=== PATIENT | female | born 1955 | race Caucasian/White ===

== ENCOUNTER 2017-04-15 13:57 | Outpatient (CLI) | payer OTHER ==
[2017-04-15] MEDS ORDERED: GADOBUTROL 7.5 MMOL/7.5 ML VIAL ONE (14:22)
[2017-04-15] MEDS ORDERED: GADOBUTROL 7.5 MMOL/7.5 ML VIAL IVP ONE (15:02)
--- NOTE | 2017-04-15 16:09 | MRI Report ---
EXAM: MRI BRAIN WITHOUT AND WITH CONTRAST EXAM DATE: 04/15/2017 03:15 PM. CLINICAL HISTORY: Thunderclap headaches. COMPARISON: No previous MRI. TECHNIQUE: Multiplanar, multisequence T1-weighted and fluid-sensitive MR sequences of the brain were performed. Sequences optimized for routine evaluation. Other: None. IV Contrast: 7 mL Gadavist. FINDINGS: Brain Volume: Normal for age. Parenchyma: No acute hemorrhage, mass, or infarct. No white matter lesions identified. No abnormal en hancement. Ventricles/Cisterns: No hydrocephalus. No abnormal extra-axial fluid collection or hemorrhage. Orbits: Symmetric and unremarkable. IAC: Symmetric and unremarkable. Vasculature: Normal signal flow void is seen in the major arterial structures at the skull base. The dural sinuses are patent and enhance normally. Sinuses: Mild to moderate multifocal paranasal sinus mucosal thickening, especially ethmoid bilateral ly. Bones: No focal pathologic appearing marrow signal changes. Other: None. IMPRESSION: 1.No acute intracranial abnormality or enhancing mass, unremarkable MRI appearance of the brain. 2. Paranasal sinus mucosal thickening. [facility] Referring Provider Line: [phone] SITE ID: [id number]
== END 2017-04-15 13:58 | disposition home or self-care (01) ==
LOC: DI 13:57
PROVIDERS: ATTEND Internal Medicine
DX: G44.53 Primary thunderclap headache (principal)
CPT/HCPCS: 70553; A9585

== ENCOUNTER 2017-04-25 13:55 | Outpatient (CLI) | payer OTHER ==
--- NOTE | 2017-04-25 15:16 | MRI Preliminary Report ---
Exam: MRI ANGIO BRAIN W/O (MRA) IMPRESSION: 1.Normal brain MRA. No stenoses or aneurysms. 2. The right vertebral artery is dominant forming the basilar artery. The left vertebral artery prima rily terminates as the left PICA. [facility] SITE ID: [id number]
--- NOTE | 2017-04-25 15:18 | MRI Report ---
EXAM MRA BRAIN EXAM DATE: 04/25/2017 02:30 PM. CLINICAL HISTORY: THUNDERCLAP HEADACHE, PRIMARY. COMPARISON: MRI of the brain 04/15/2017. TECHNIQUE: Multiplanar, multisequence MRA sequences of the brain were performed. Other: None. Post-pr ocessing: Multiplanar 3D MIP reconstructions. IV Contrast: None. FINDINGS: RIGHT Internal Carotid (ICA): No aneurysm, stenosis or anomaly. Middle Cerebral (MCA): No aneurysm, stenosis or anomaly. Anterior Cerebral (ETHEL): No aneurysm, stenosis or anomaly. Posterior Cerebral (EDGE MOLDER): No aneurysm, stenosis or anomaly. Posterior Communicating (P-COM): No aneurysm, stenosis or anomaly. Vertebral: No aneurysm, stenosis or anomaly in the visualized upper vertebral artery. Dominant formin g the basilar artery. The PICA is unremarkable. LEFT Internal Carotid (ICA): No aneurysm, stenosis or anomaly. Middle Cerebral (MCA): No aneurysm, stenosis or anomaly. Anterior Cerebral (ETHEL): No aneurysm, stenosis or anomaly. Posterior Cerebral (EDGE MOLDER): No aneurysm, stenosis or anomaly. Posterior Communicating (P-COM): No aneurysm, stenosis or anomaly. Vertebral: No aneurysm, stenosis or anomaly in the visualized upper vertebral artery. Small in calibe r, terminates as the left PICA. No significant continuation to the basilar artery is seen. MIDLINE Anterior Communicating (A-COM): No aneurysm, stenosis or anomaly. Basilar Artery:No aneurysm, stenosis or anomaly. Other: None. IMPRESSION: 1.Normal brain MRA. No stenoses or aneurysms. 2. The right vertebral artery is dominant forming the basilar artery. The left vertebral artery prima rily terminates as the left PICA. [facility] Referring Provider Line: [phone] SITE ID: [id number]
--- NOTE | 2017-04-28 14:54 | DEXA Report ---
DEXA SCAN: 04/25/2017 HISTORY: Primary ovarian failure. TECHNIQUE: Dual energy x-ray absorptiometry (DXA) was performed on a [employer] system. Regions measured are the AP spine, femoral neck, and, if needed, forearm. COMPARISON: None. In accordance with the International Society for Clinical Densitometry (ISCD) guidelines, data from previous exams may be reanalyzed using current recommendations and techniques. This is done to allow a more accurate basis for comparison with the current study. FINDINGS LUMBAR SPINE DATA: REGION BMD (g/cm/cm) T-SCORE Z-SCORE L1 0.945 -1.5 -0.5 L2 1.073 -1.1 0.0 L3 1.156 -0.4 0.7 L4 1.144 -0.5 0.6 TOTAL 1.085 -0.8 0.3 NOTE: All evaluable vertebrae are used for classification. HIP DATA: REGION BMD (g/cm/cm) T-SCORE Z-SCORE Neck 0.943 -0.7 0.5 TOTAL 0.890 -0.9 -0.1 NOTE: The femoral neck or total proximal femur, whichever is lowest, is used for classification. IMPRESSION THE WHO CLASSIFICATION BASED ON THE INTERNATIONAL REFERENCE STANDARD: BONE MINERAL DENSITY L1 TO L4 AND BONE MINERAL DENSITY LEFT HIP ARE NORMAL. FRACTURE RISK: NOT INCREASED. RECOMMENDATION: Patients with diagnosis of osteoporosis or osteopenia should have regular bone mineral density assessment. For those eligible for Medicare, routine testing is allowed once every 2 years. Testing frequency can be increased for patients who have rapidly progressing disease or for those who are receiving medical therapy to restore bone mass. COMMENT: World Health Organization (WHO) definitions for osteoporosis and osteopenia: NORMAL BMD: T-score at -1.0 or higher, fracture risk is low. OSTEOPENIA BMD: T-score between -1.0 and -2.5, fracture risk is increased. OSTEOPOROSIS BMD: T-score at -2.5 or lower, fracture risk high. National Osteoporosis Foundation recommends: 1. Obtain adequate dietary calcium (at least 1200 mg per day) and vitamin D (400 -800 international units per day). 2. Participate, as appropriate, in regular weightbearing and muscle- strengthening exercise. 3. Avoid tobacco use and reduce alcohol and caffeine intake. 4. For more detailed information see the website at www.NOF.org. MTDD
== END 2017-04-25 13:56 | disposition home or self-care (01) ==
LOC: DI 13:55
PROVIDERS: ATTEND Internal Medicine
DX: G44.53 Primary thunderclap headache (principal); Z78.0 Asymptomatic menopausal state
CPT/HCPCS: 70544; 77080

== ENCOUNTER 2017-04-26 14:33 | Outpatient (CLI) | payer OTHER ==
--- NOTE | 2017-04-27 09:30 | Mammography Report ---
DIGITAL SCREENING MAMMOGRAM: 04/26/2017 COMPARISON: 05/12/2016, 05/21/2015, 04/19/2014, 04/05/2014, 05/08/2013, 05/02/2012, 04/23/2011, and 05/04/2010. TECHNIQUE: Bilateral digital CC and MLO projections. FINDINGS: There are scattered fibroglandular densities. There is no dominant mass, architectural di stortion, skin thickening, suspicious microcalcifications, or interval change. IMPRESSION: NEGATIVE. BIRADS CATEGORY 1. SUGGEST ROUTINE ANNUAL SCREENING. STANDARD QUALIFYING STATEMENTS 1. This examination was reviewed with the aid of Computer-Aided Detection (CAD). 2. A negative or benign imaging report should not delay biopsy if clinically suspicious findings are present. Consider surgical consultation if warranted. More than 5% of cancers are not identified by i maging. 3. Dense breasts may obscure an underlying neoplasm. JOB #: [id number] EXT JOB #:[id number]
== END 2017-04-26 14:34 | disposition home or self-care (01) ==
LOC: DI 14:33
PROVIDERS: ATTEND Obstetrics & Gynecology
DX: Z12.39 Encounter for other screening for malignant neoplasm of breast (principal)
CPT/HCPCS: 77067

== ENCOUNTER 2018-04-10 07:36 | Outpatient (CLI) | payer OTHER ==
[2018-04-10 07:53] LABS: BASOPHILS % (AUTO) 0.4 %; EOSINOPHILS # (AUTO) 0.1 10^3/uL (0.0-0.7); EOSINOPHILS % (AUTO) 2.1 %; HGB - HEMOGLOBIN 13.6 g/dL (12.0-16.0); LYMPHOCYTES # (AUTO) 1.4 10^3/uL (1.5-3.5); LYMPHOCYTES % (AUTO) 23.2 %; MEAN CORPUSCULAR HEMOGLOBIN 31.4 pg (27.0-31.0); MEAN CORPUSCULAR HGB CONC 34.2 g/dL (32.0-36.0); MONOCYTES # (AUTO) 0.4 10^3/uL (0.0-1.0); MONOCYTES % (AUTO) 6.8 %; NEUTROPHILS # (AUTO) 3.9 10^3/uL (1.5-6.6); NEUTROPHILS % (AUTO) 67.5 %; PLT - PLATELET COUNT 234 10^3/uL (130-450); RED BLOOD COUNT 4.32 10^6/uL (4.20-5.40); RED CELL DISTRIBUTION WIDTH 13.2 % (12.0-15.0); WHITE BLOOD COUNT 5.8 x10^3/uL (4.8-10.8)
[2018-04-10 08:13] LABS: ALBUMIN 4.3 g/dL (3.2-5.5); ALBUMIN/GLOBULIN RATIO 1.5 (1.0-2.2); ALKALINE PHOSPHATASE 57 IU/L (42-121); ALT ALANINE AMINOTRANSFERASE 16 IU/L (10-60); AST ASPARTATE AMINOTRANSFERASE 22 IU/L (10-42); BILIRUBIN,TOTAL 1.3 mg/dL (0.2-1.0); BUN - BLOOD UREA NITROGEN 17 mg/dL (6-20); CALCIUM 9.1 mg/dL (8.5-10.3); CARBON DIOXIDE - CO2 28 mmol/L (21-32); CHLORIDE 102 mmol/L (101-111); CHOL/HDL RATIO 2.3 (<4.4); CHOLESTEROL 237 mg/dL; CREATININE 0.8 mg/dL (0.4-1.0); GFR - MDRD 73 (>89); GLUCOSE 102 mg/dL (70-100); HDL CHOLESTEROL 101 mg/dL; LDL CHOLESTEROL,CALCULATED 122 mg/dL; LDL/HDL RATIO 1.2 (<4.4); SODIUM 136 mmol/L (135-145); TOTAL PROTEIN 7.2 g/dL (6.7-8.2); VLDL CHOLESTEROL 14 mg/dL
[2018-04-10 08:32] LABS: HB2 TOTAL 14.7 g/dL; HEMOGLOBIN A1C 0.49 g/dL; HEMOGLOBIN A1C % 5.2 % (4.6-6.2)
== END 2018-04-10 07:37 | disposition home or self-care (01) ==
LOC: LAB 07:36
PROVIDERS: ATTEND Internal Medicine
DX: Z00.00 Encounter for general adult medical examination without abnormal findings (principal); E04.1 Nontoxic single thyroid nodule; R73.9 Hyperglycemia, unspecified; Z79.899 Other long term (current) drug therapy
CPT/HCPCS: 36415; 80053; 80061; 83036; 83721; 84443; 85025

== ENCOUNTER 2018-05-04 16:39 | Outpatient (CLI) | payer OTHER ==
--- NOTE | 2018-05-05 13:49 | Ultrasound Report ---
Reason: THYROID NODULE Procedure Date: 05/04/2018 Accession Number: [id number] / [id number] Procedure: US - Head or Neck Soft Tissue CPT Code: FULL RESULT: EXAM: THYROID ULTRASOUND EXAM DATE: 05/04/2018 05:00 PM. CLINICAL HISTORY: Thyroid nodule. COMPARISON: US head or neck soft tissue 05/14/2016 11:53 AM. TECHNIQUE: Real time sonographic imaging of the thyroid was performed by the silica mixer operator. Multiple event marketing representative static images were saved for review. FINDINGS: THYROID GLAND: Right Lobe: 4.8 x 1.6 x 1.7 cm, volume 6.9 cc. Homogenous normal-appearing thyroid background. Right Lobe Nodules: Upper pole 1.1 x 0.7 x 1.1 cm solid hypoechoic nodule, similar to prior. Heterogeneous 0.6 x 0.5 x 0.6 cm inferior nodule, similar to prior. Left Lobe: 4.9 x 1.4 x 1.6 cm, volume 6 cc. Normal-appearing thyroid background. Left Lobe Nodules: Heterogeneous cystic solid 1.2 x 0.6 x 0.9 cm nodule, minimally increased compared to prior. Tiny cystic nodules measuring 5 mm or less are also seen. Isthmus: 0.3 cm AP. Isthmic Nodules: None. LYMPH NODES: No adenopathy demonstrated in the central or lateral compartment. OTHER: None. IMPRESSION: Multiple thyroid nodules in the setting of a normal thyroid parenchymal background. Appearance does not favor multinodular goiter. The largest nodule on each side may have mildly increased in size in the interval. Would perform fine-needle aspiration of the dominant nodule on each side given that they now measure greater than 1 cm and both demonstrate significant solid components. Management recommendations are based on 2015 [place] [employer] Management Guidelines for Adult Patients with Thyroid Nodules and Differentiated Thyroid Cancer. [facility]
== END 2018-05-04 16:40 | disposition home or self-care (01) ==
LOC: DI 16:39
PROVIDERS: ATTEND Internal Medicine
DX: E04.2 Nontoxic multinodular goiter (principal)
CPT/HCPCS: 76536

== ENCOUNTER 2018-05-22 14:21 | Outpatient (CLI) | payer OTHER ==
--- NOTE | 2018-05-24 08:13 | Mammography Report ---
Reason: SCREENING MAMMO Procedure Date: 05/22/2018 Accession Number: [id number] / [id number] Procedure: [facility] - Screening Mammo Dig Bilat CPT Code: FULL RESULT: EXAM: Screening Mammo Dig Bilat DATE: 05/22/2018 2:54 PM CLINICAL HISTORY: Screening encounter. History of breast cyst removal. No reported risk factors. TECHNIQUE: Bilateral CC and MLO views were obtained. COMPARISON: 04/26/2017 through 04/05/2014. FINDINGS: The breasts demonstrate scattered fibroglandular densities bilaterally. No suspicious masses, clustered microcalcifications, or regions of architectural distortion are identified. IMPRESSION: Negative examination RECOMMENDATION: Routine annual screening unless otherwise clinically indicated. BIRADS CATEGORY 1: Negative STANDARD QUALIFYING STATEMENTS: 1. This examination was not reviewed with the aid of Computer-Aided Detection (CAD). 2. A negative or benign imaging report should not preclude biopsy if clinically suspicious findings are present. 3. Dense breasts may obscure an underlying neoplasm. 4. This examination was reviewed without the aid of 3D breast imaging (tomosynthesis).
== END 2018-05-22 14:22 | disposition home or self-care (01) ==
LOC: DI 14:21
PROVIDERS: ATTEND Obstetrics & Gynecology
DX: Z12.13 Encounter for screening for malignant neoplasm of small intestine (principal)
CPT/HCPCS: 77067

== ENCOUNTER 2018-06-16 13:33 | Outpatient (CLI) | payer BC, OTHER ==
[~2018-06-16 13:33] MED LIST: BUFFERED LIDOCAINE 10 ML SYRINGE ONE
--- NOTE | 2018-06-16 16:05 | Ultrasound Report ---
Reason: THYROID NODULE Procedure Date: 06/16/2018 Accession Number: [id number] / [id number] Procedure: US - FNA Bx w/US Gnd les CPT Code: 87226 FULL RESULT: EXAM: THYROID FINE NEEDLE ASPIRATION EXAM DATE: 06/16/2018 03:00 PM. CLINICAL HISTORY: Thyroid nodule. COMPARISON: 05/04/2018. TECHNIQUE: The risks, benefits, and alternatives of the procedure were discussed with the patient. All questions were answered. Written and verbal consent were obtained. A site was marked over the right and left neck in question under live sonographic evaluation, then subsequently prepped and draped in a sterile manner. Local anesthesia was performed with 1% lidocaine. Four, 22 gauge fine-needle aspirates/passes were performed through the dominant right and left thyroid nodule in question, then passed to the certified addiction counselor for preparation. Estimated blood loss was 0 mL. Sonographic images demonstrate needle placement within the right and left thyroid nodule in question. Three FNA aspirates were placed into the normal cytology solution for each nodule. One FNA aspirate of each nodule was placed into specialized thyroid genetic assay solution. Fluoroscopy Time: 0 minutes. Number of Images: 24 ultrasound images. FINDINGS IMPRESSION: Fine-needle aspiration biopsy of the dominant left and dominant right thyroid nodule respectively. [facility]
[2018-06-16] MEDS ORDERED: BUFFERED LIDOCAINE 10 ML SYRINGE IU ONE (17:45)
== END 2018-06-16 13:34 | disposition home or self-care (01) ==
LOC: DI 13:33
PROVIDERS: ATTEND Internal Medicine
DX: E04.2 Nontoxic multinodular goiter (principal)
CPT/HCPCS: 10005

== ENCOUNTER 2018-08-29 16:35 | Outpatient (CLI) | payer BC, OTHER ==
[2018-08-29 18:20] LABS: THYROID STIMULATING HORMONE 2.27 uIU/mL (0.34-5.60)
[2018-08-29 18:22] LABS: FREE T4 (FREE THYROXINE) 0.75 ng/dL (0.58-1.64)
== END 2018-08-29 16:36 | disposition home or self-care (01) ==
LOC: LAB 16:35
PROVIDERS: ATTEND Internal Medicine
DX: E04.1 Nontoxic single thyroid nodule (principal)
CPT/HCPCS: 36415; 84439; 84443; 84481

== ENCOUNTER 2019-03-10 10:07 | Outpatient (CLI) | payer OTHER, BC ==
--- NOTE | 2019-03-11 17:05 | MRI Report ---
Reason: PATELLOFEMORAL DISORDER OF RIGHT KNEE Procedure Date: 03/10/2019 Accession Number: [id number] / [id number] Procedure: MRI - Knee RT W/O CPT Code: FULL RESULT: EXAM: RIGHT KNEE MRI WITHOUT CONTRAST EXAM DATE: 03/10/2019 11:17 AM. CLINICAL HISTORY: Patellofemoral disorder of right knee. COMPARISON: None. TECHNIQUE: Multiplanar, multisequence T1-weighted and fluid-sensitive sequences of the knee without contrast. Other: None. FINDINGS: Bones: There are no visible fractures. Articular Cartilage: Minimal erosion of the hyaline cartilage in all 3 compartments. Medial Meniscus: There is a complex tear at the junction of the posterior horn and body of the medial meniscus. It appears to propagate into the posterior horn as a vertical tear. A fragment from the free margin of the body is displaced into the medial recess, superior and medial to the body of the meniscus. Lateral Meniscus: The lateral meniscus is intact. Cruciate Ligaments: The anterior and posterior cruciate ligaments are intact. Collateral Ligaments: The medial collateral and lateral collateral ligamentous structures are intact. Tendons: The quadriceps, patellar, semimembranosus, and popliteus tendons are unremarkable. Musculature: No edema or fatty atrophy. Other: There is a small joint effusion.. No popliteal cyst.No loose bodies.The medial and lateral retinacula are intact.The subcutaneous tissues and fat pads are unremarkable. IMPRESSION: 1. 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 2. Complex tear of the body and posterior horn of the medial meniscus. A fragment is displaced into the medial recess, lying superior to the body of the medial meniscus. [facility]
== END 2019-03-10 10:08 | disposition home or self-care (01) ==
LOC: DI 10:07
PROVIDERS: ATTEND Orthopaedic Surgery Sports Medicine
DX: M17.11 Unilateral primary osteoarthritis, right knee (principal); M23.221 Derangement of posterior horn of medial meniscus due to old tear or injury, right knee

== ENCOUNTER 2019-04-04 06:08 | Outpatient (CLI) | payer BC, OTHER ==
[2019-04-04 06:28] LABS: BASOPHILS % (AUTO) 0.2 %; EOSINOPHILS # (AUTO) 0.2 10^3/uL (0.0-0.7); EOSINOPHILS % (AUTO) 2.8 %; HGB - HEMOGLOBIN 13.8 g/dL (12.0-16.0); LYMPHOCYTES # (AUTO) 1.4 10^3/uL (1.5-3.5); LYMPHOCYTES % (AUTO) 23.7 %; MEAN CORPUSCULAR HEMOGLOBIN 31.3 pg (27.0-31.0); MEAN CORPUSCULAR HGB CONC 33.4 g/dL (32.0-36.0); MEAN CORPUSCULAR VOLUME 93.7 fL (81.0-99.0); MEAN PLATELET VOLUME 10.2 fL (7.9-10.8); MONOCYTES # (AUTO) 0.5 10^3/uL (0.0-1.0); MONOCYTES % (AUTO) 7.8 %; NEUTROPHILS # (AUTO) 3.8 10^3/uL (1.5-6.6); PLT - PLATELET COUNT 242 10^3/uL (130-450); RED BLOOD COUNT 4.41 10^6/uL (4.20-5.40); RED CELL DISTRIBUTION WIDTH 12.6 % (12.0-15.0); WHITE BLOOD COUNT 5.8 x10^3/uL (4.8-10.8)
[2019-04-04 06:48] LABS: ALBUMIN/GLOBULIN RATIO 1.2 (1.0-2.2); ALKALINE PHOSPHATASE 48 IU/L (42-121); ALT ALANINE AMINOTRANSFERASE 19 IU/L (10-60); AST ASPARTATE AMINOTRANSFERASE 25 IU/L (10-42); BILIRUBIN,TOTAL 1.2 mg/dL (0.2-1.0); BUN - BLOOD UREA NITROGEN 22 mg/dL (6-20); CALCIUM 9.3 mg/dL (8.5-10.3); CARBON DIOXIDE - CO2 24 mmol/L (21-32); CHLORIDE 104 mmol/L (101-111); CHOL/HDL RATIO 2.4 (<4.4); CHOLESTEROL 237 mg/dL; CREATININE 0.7 mg/dL (0.4-1.0); GFR - MDRD 85 (>89); GLUCOSE 107 mg/dL (70-100); HDL CHOLESTEROL 100 mg/dL; LDL CHOLESTEROL,CALCULATED 126 mg/dL; LDL/HDL RATIO 1.3 (<4.4); SODIUM 136 mmol/L (135-145); TOTAL PROTEIN 7.3 g/dL (6.7-8.2); VLDL CHOLESTEROL 11 mg/dL
[2019-04-04 06:58] LABS: THYROID STIMULATING HORMONE 2.53 uIU/mL (0.34-5.60)
[2019-04-04 07:00] LABS: FREE T4 (FREE THYROXINE) 0.97 ng/dL (0.58-1.64)
[2019-04-04 09:26] LABS: HB2 TOTAL 14.1 g/dL; HEMOGLOBIN A1C 0.52 g/dL; HEMOGLOBIN A1C % 5.5 % (4.6-6.2)
== END 2019-04-04 06:09 | disposition home or self-care (01) ==
LOC: LAB 06:08
PROVIDERS: ATTEND Nurse Practitioner
DX: Z79.899 Other long term (current) drug therapy (principal); E04.1 Nontoxic single thyroid nodule; R73.02 Impaired glucose tolerance (oral)
CPT/HCPCS: 36415; 80053; 80061; 83036; 83721; 84439; 84443; 84481; 85025

== ENCOUNTER 2020-05-09 07:36 | Outpatient (CLI) | payer BC, OTHER ==
[2020-05-09 08:04] LABS: BASOPHILS % (AUTO) 0.3 %; EOSINOPHILS # (AUTO) 0.2 10^3/uL (0.0-0.7); EOSINOPHILS % (AUTO) 2.6 %; LYMPHOCYTES # (AUTO) 1.2 10^3/uL (1.5-3.5); LYMPHOCYTES % (AUTO) 20.1 %; MEAN CORPUSCULAR HEMOGLOBIN 30.5 pg (27.0-31.0); MEAN CORPUSCULAR HGB CONC 32.6 g/dL (32.0-36.0); MEAN CORPUSCULAR VOLUME 93.7 fL (81.0-99.0); MONOCYTES # (AUTO) 0.4 10^3/uL (0.0-1.0); MONOCYTES % (AUTO) 6.7 %; NEUTROPHILS # (AUTO) 4.2 10^3/uL (1.5-6.6); NEUTROPHILS % (AUTO) 69.8 %; PLT - PLATELET COUNT 259 10^3/uL (130-450); RED BLOOD COUNT 4.26 10^6/uL (4.20-5.40); RED CELL DISTRIBUTION WIDTH 12.2 % (12.0-15.0); WHITE BLOOD COUNT 6.1 x10^3/uL (4.8-10.8)
[2020-05-09 08:30] LABS: ALBUMIN 4.2 g/dL (3.2-5.5); ALBUMIN/GLOBULIN RATIO 1.4 (1.0-2.2); ALKALINE PHOSPHATASE 56 IU/L (42-121); ALT ALANINE AMINOTRANSFERASE 16 IU/L (10-60); AST ASPARTATE AMINOTRANSFERASE 20 IU/L (10-42); BILIRUBIN,TOTAL 0.9 mg/dL (0.2-1.0); BUN - BLOOD UREA NITROGEN 20 mg/dL (6-20); CALCIUM 9.5 mg/dL (8.5-10.3); CARBON DIOXIDE - CO2 22 mmol/L (21-32); CHLORIDE 105 mmol/L (101-111); CHOL/HDL RATIO 2.4 (<4.4); CHOLESTEROL 229 mg/dL; CREATININE 0.7 mg/dL (0.4-1.0); GLUCOSE 107 mg/dL (70-100); HDL CHOLESTEROL 95 mg/dL; LDL CHOLESTEROL,CALCULATED 122 mg/dL; LDL/HDL RATIO 1.3 (<4.4); SODIUM 138 mmol/L (135-145); TOTAL PROTEIN 7.1 g/dL (6.7-8.2); VLDL CHOLESTEROL 12 mg/dL
[2020-05-09 08:43] LABS: THYROID STIMULATING HORMONE 2.14 uIU/mL (0.34-5.60)
[2020-05-09 08:44] LABS: FREE T3 2.96 pg/mL (2.5-3.9)
[2020-05-09 08:45] LABS: FREE T4 (FREE THYROXINE) 0.97 ng/dL (0.58-1.64)
[2020-05-09 13:25] LABS: HEMOGLOBIN A1c% 5.2 % (4.27-6.07)
== END 2020-05-09 07:37 | disposition home or self-care (01) ==
LOC: LAB 07:36
PROVIDERS: ATTEND Nurse Practitioner
DX: Z00.00 Encounter for general adult medical examination without abnormal findings (principal); R73.02 Impaired glucose tolerance (oral); E04.1 Nontoxic single thyroid nodule; Z79.899 Other long term (current) drug therapy
CPT/HCPCS: 36415; 80053; 80061; 83036; 83721; 84439; 84443; 84481; 85025

== ENCOUNTER 2020-05-17 16:19 | Outpatient (CLI) | payer BC, OTHER ==
--- NOTE | 2020-05-17 19:45 | Ultrasound Report ---
PROCEDURE: Head or Neck Soft Tissue INDICATIONS: THYROID NODULE TECHNIQUE: Real-time scanning was performed of the thyroid gland, with image documentation. COMPARISON: 05/05/2018 FINDINGS: Right: Thyroid lobe measures 3.7 x 1.5 x 1.9 cm, and is homogeneous in echotexture. Left: Thyroid lobe measures 5.2 x 2.0 x 1.4 cm, and is homogenous in echotexture. Isthmus: 5 mm thick. Nodule number: One Location: Right upper pole Size: 1.0 x 0.7 x 0.8 cm, previously 1.1 x 0.7 x 1.1 cm. Composition: Solid Echogenicity: Hypoechoic Shape: wider than tall. Margins: Smooth Echogenic foci: No Total points: 4 ACR TI-RADS category: Moderately suspicious, previously biopsied. Nodule number: Two Location: Right deep lateral midpole Size: 0.6 x 0.5 x 0.5 cm. Not previously measured as a discrete nodule by the [employer] but stable by my measurements on there picture. Composition: Solid Echogenicity: Hypoechoic Shape: wider than tall. Margins: Smooth Echogenic foci: Punctate Total points: 7 ACR TI-RADS category: Highly suspicious, but stable size over 2 years. Nodule number: Three Location: Right inferior pole Size: 0.5 x 0.5 x 0.4 cm., Previously 0.6 x 0.5 x 0.6 Composition: Solid Echogenicity: Hyperechoic Shape: wider than tall. Margins: Smooth Echogenic foci: None Total points: 3 ACR TI-RADS category: Mildly suspicious, stable Nodule number: Four Location: Left mid pole Size: 1.1 x 0.6 x 0.8 cm, previously 1.2 x 0.6 x 0.9 cm. Composition: Solid Echogenicity: Hypoechoic Shape: wider than tall. Margins: Irregular Echogenic foci: Punctate Total points: 8 ACR TI-RADS category: Highly suspicious, but previously biopsied Nodule number: 5 Location: Left medial midpole Size: 0.5 x 0.2 x 0.4 cm, previously 0.5 x 0.4 x 0.3 cm. Composition: 2 small to characterize Echogenicity: Hypoechoic Shape: wider than tall. Margins: Smooth Echogenic foci: None Total points: 3 ACR TI-RADS category: Mildly suspicious, stable IMPRESSION: 1. No significant change in size to any of the multiple thyroid nodules, which by established criteri a are of various concern. The most concerning appear to have been recently biopsied. Continued follow -up for subcentimeter right lobe nodule given criteria. Given its recent stability, two-year follow-u p is recommended. ACR TI-RADS definitions and recommendations: TI-RADS 1 (benign): 0 points. FNA not needed. TI-RADS 2 (not suspicious): 2 points. FNA not needed. TI-RADS 3 (mildly suspicious): 3 points. ? FNA if 2.5 cm or larger, follow up if 1.5 cm or larger (at 1, 3, and 5 years). TI-RADS 4 (moderately suspicious): 4-6 points. ? FNA if 1.5 cm or larger, follow up if 1 cm or larger (at 1, 2, 3, and 5 years). TI-RADS 5 (highly suspicious): 7 points or more. ? FNA if 1 cm or larger, follow up if 0.5 cm or larger (every year for 5 years). Reviewed by: Aliyah Rosado MD on 05/17/2020 7:43 PM PST Approved by: Aliyah Rosado MD on 05/17/2020 7:43 PM PST Station ID: [id number]
== END 2020-05-17 16:20 | disposition home or self-care (01) ==
LOC: DI 16:19
PROVIDERS: ATTEND Nurse Practitioner
DX: E04.2 Nontoxic multinodular goiter (principal)

== ENCOUNTER 2020-05-21 08:51 | Outpatient (CLI) | payer BC, OTHER ==
--- NOTE | 2020-05-22 14:16 | Mammography Report ---
BILATERAL DIGITAL SCREENING MAMMOGRAM 3D/2D: 05/21/2020 CLINICAL: Routine screening. Comparison is made to exams dated: 05/22/2018 mammogram, 04/26/2017 mammogram, 05/12/2016 mammogram, 05/21/2015 mammogram, and 04/19/2014 mammogram - [facility]. The tissue of both br easts is heterogeneously dense. This may lower the sensitivity of mammography. No significant masses, calcifications, or other findings are seen in either breast. There has been no significant interval change. IMPRESSION: NEGATIVE There is no mammographic evidence of malignancy. A 1 year screening mammogram is recommended. This exam was interpreted at Station ID: [id number]. NOTE: For mammograms, a report in lay terms will be sent to the patient. Approximately 15% of breast malignancies will not be visualized mammographically. In the management of a palpable breast mass, a negative mammogram must not discourage biopsy of a clinically suspicious lesion. Electronically Signed By: Aliyah browning/carlita:05/21/2020 09:55:57 ACR BI-RADS Category 1: Negative 3341F PARENCHYMAL PATTERN: (D) - The breast(s) demonstrate(s) heterogeneously dense fibroglandular crow yepez. BI-RADS CATEGORY: (1) - 1 RECOMMENDATION: (ANNUAL) - Recommend routine annual screening mammography. [id number] 1 year screening LATERALITY: (B)
== END 2020-05-21 08:52 | disposition home or self-care (01) ==
LOC: DI.N 08:51
PROVIDERS: ATTEND Nurse Practitioner
DX: Z12.31 Encounter for screening mammogram for malignant neoplasm of breast (principal)

== ENCOUNTER 2020-06-26 14:26 | Outpatient (CLI) | payer BC, OTHER ==
--- NOTE | 2020-06-26 17:13 | CT Report ---
PROCEDURE: Sinuses INDICATIONS: ACUTE BACTERIAL SINUSITIS, FACIAL PRESSURE TECHNIQUE: Noncontrast 3.0 mm axial images acquired from the frontal sinuses to the mid-sella, with coronal and sagittal reformats. For radiation dose reduction, the following was used: automated exposure control , adjustment of mA and/or kV according to patient size. COMPARISON: None. FINDINGS: Image quality: Excellent. Sinuses: Minimal mucosal thickening is present within the maxillary sinuses as well as left sphenoid sinus and scattered ethmoid sinuses. No fluid levels. No mucous retention cysts or polyps are identi fied. Ostiomeatal Complexes: Ostiomeatal complexes are patent. Miscellaneous: Visualized intra-orbital contents are normal. No yulia bullosa. No nasal septal de viation. No paradoxical turbinates. IMPRESSION: Minimal scattered mucosal thickening without air-fluid levels. Ostiomeatal complexes are patent. Reviewed by: Tessie Blake MD on 06/26/2020 5:11 PM PST Approved by: Tessie Blake MD on 06/26/2020 5:11 PM PST Station ID: [id number]
== END 2020-06-26 14:27 | disposition home or self-care (01) ==
LOC: DI 14:26
PROVIDERS: ATTEND Otolaryngology
DX: J01.90 Acute sinusitis, unspecified (principal); B96.89 Other specified bacterial agents as the cause of diseases classified elsewhere; J32.4 Chronic pansinusitis; R44.8 Other symptoms and signs involving general sensations and perceptions

== ENCOUNTER 2021-03-11 09:49 | Outpatient (CLI) | payer BC, MEDICARE, OTHER ==
--- NOTE | 2021-03-11 10:33 | DEXA Report ---
PROCEDURE: DEXA Spine and/or Hip INDICATIONS: OSTEOPENIA TECHNIQUE: Dual energy x-ray absorptiometry (DXA) was performed on a [employer]. Regions measur ed are the AP Spine, femoral neck, and if needed forearm. COMPARISON: March 11, 2021. FINDINGS: Lumbar Spine: Bone Mineral Density 1.163 g/cm/cm,T score -0.1, normal Left Femoral Neck: Bone Mineral Density 0.875 g/cm/cm, T score -1.1, osteopenia (T score greater or equal to -1.0: NORMAL) (T score from -1.1 to -2.4: OSTEOPENIA) (T score less than or equal to -2.5 to: OSTEOPOROSIS) Impression: Osteopenia of the left femoral neck. Patients with diagnosis of osteoporosis or osteopenia should have regular bone mineral density assess ment. For those eligible for Medicare, routine testing is allowed once every 2 years. Testing frequ ency can be increased for patients who have rapidly progressing disease or for those who are receivin g medical therapy to restore bone mass. Reviewed by: Anival Manuel MD on 03/11/2021 10:32 AM PDT Approved by: Anival Manuel MD on 03/11/2021 10:32 AM PDT Station ID: [id number]
== END 2021-03-11 09:50 | disposition home or self-care (01) ==
LOC: DI 09:49
PROVIDERS: ATTEND Family Medicine
DX: M85.88 Other specified disorders of bone density and structure, other site (principal)

== ENCOUNTER 2021-03-15 08:00 | Outpatient (CLI) | payer BC, MEDICARE, OTHER | END 2021-03-15 08:01 | disposition home or self-care (01) | LOC: LAB 08:00 | PROVIDERS: ATTEND Family Medicine | DX: R39.9 Unspecified symptoms and signs involving the genitourinary system (principal) | CPT/HCPCS: 87086 ==

== ENCOUNTER 2021-03-17 08:21 | Outpatient (CLI) | payer BC, MEDICARE, OTHER ==
[2021-03-17 08:41] LABS: BASOPHILS % (AUTO) 0.2 %; EOSINOPHILS # (AUTO) 0.2 10^3/uL (0.0-0.7); EOSINOPHILS % (AUTO) 2.6 %; HCT - HEMATOCRIT 41.8 % (37.0-47.0); HGB - HEMOGLOBIN 13.9 g/dL (12.0-16.0); LYMPHOCYTES # (AUTO) 1.4 10^3/uL (1.5-3.5); LYMPHOCYTES % (AUTO) 23.7 %; MEAN CORPUSCULAR HEMOGLOBIN 31.2 pg (27.0-31.0); MEAN CORPUSCULAR HGB CONC 33.3 g/dL (32.0-36.0); MEAN CORPUSCULAR VOLUME 93.9 fL (81.0-99.0); MEAN PLATELET VOLUME 10.1 fL (7.9-10.8); MONOCYTES # (AUTO) 0.4 10^3/uL (0.0-1.0); NEUTROPHILS # (AUTO) 3.8 10^3/uL (1.5-6.6); NEUTROPHILS % (AUTO) 66.3 %; PLT - PLATELET COUNT 241 10^3/uL (130-450); RED BLOOD COUNT 4.45 10^6/uL (4.20-5.40); RED CELL DISTRIBUTION WIDTH 12.5 % (12.0-15.0); WHITE BLOOD COUNT 5.7 x10^3/uL (4.8-10.8)
[2021-03-17 09:11] LABS: ALBUMIN 4.4 g/dL (3.2-5.5); ALBUMIN/GLOBULIN RATIO 1.6 (1.0-2.2); ALKALINE PHOSPHATASE 64 IU/L (42-121); ALT ALANINE AMINOTRANSFERASE 20 IU/L (10-60); AST ASPARTATE AMINOTRANSFERASE 24 IU/L (10-42); BILIRUBIN,TOTAL 0.8 mg/dL (0.2-1.0); BUN - BLOOD UREA NITROGEN 15 mg/dL (6-20); CALCIUM 9.6 mg/dL (8.5-10.3); CARBON DIOXIDE - CO2 27 mmol/L (21-32); CHLORIDE 105 mmol/L (101-111); CHOL/HDL RATIO 2.7 (<4.4); CHOLESTEROL 249 mg/dL; CREATININE 0.7 mg/dL (0.4-1.0); GFR - MDRD 84 (>89); GLUCOSE 103 mg/dL (70-100); HDL CHOLESTEROL 91 mg/dL; LDL CHOLESTEROL,CALCULATED 140 mg/dL; LDL/HDL RATIO 1.5 (<4.4); POTASSIUM 3.8 mmol/L (3.5-5.0); SODIUM 140 mmol/L (135-145); TOTAL PROTEIN 7.2 g/dL (6.7-8.2); TRIGLYCERIDES 89 mg/dL; VLDL CHOLESTEROL 18 mg/dL
[2021-03-17 09:21] LABS: THYROID STIMULATING HORMONE 2.24 uIU/mL (0.34-5.60)
[2021-03-17 09:41] LABS: ESTIMATED AVERAGE GLUCOSE 111 mg/dL (70-100); HEMOGLOBIN A1c% 5.5 % (4.27-6.07)
[2021-03-19 13:51] LABS: THYROID PEROXIDASE ANTIBODIES <1 IU/mL (<9)
== END 2021-03-17 08:22 | disposition home or self-care (01) ==
LOC: LAB 08:21
PROVIDERS: ATTEND Family Medicine
DX: R39.9 Unspecified symptoms and signs involving the genitourinary system (principal)
CPT/HCPCS: 36415; 80053; 80061; 83036; 83721; 84443; 85025; 86376; 86800; 87086

== ENCOUNTER 2021-04-30 13:00 | Outpatient (CLI) | payer BC, MEDICARE, OTHER ==
--- NOTE | 2021-05-01 11:30 | Mammography Report ---
BILATERAL DIGITAL SCREENING MAMMOGRAM 3D/2D: 04/30/2021 CLINICAL: Routine screening. Comparison is made to exams dated: 05/21/2020 mammogram, 05/22/2018 mammogram, and 04/26/2017 mammogr am - [facility]. There are scattered fibroglandular elements in both breasts. No significant masses, calcifications, or other findings are seen in either breast. There has been no significant interval change. IMPRESSION: NEGATIVE There is no mammographic evidence of malignancy. A 1 year screening mammogram is recommended. This exam was interpreted at Station ID: [id number]. NOTE: For mammograms, a report in lay terms will be sent to the patient. Approximately 15% of breast malignancies will not be visualized mammographically. In the management of a palpable breast mass, a negative mammogram must not discourage biopsy of a clinically suspicious lesion. Electronically Signed By: Aliyah browning/penrad:04/30/2021 16:21:46 ACR BI-RADS Category 1: Negative 3341F PARENCHYMAL PATTERN: (A) - The breast(s) demonstrate(s) scattered fibroglandular densities. BI-RADS CATEGORY: (1) - 1 RECOMMENDATION: (ANNUAL) - Recommend routine annual screening mammography. [id number] 1 year screening LATERALITY: (B)
== END 2021-04-30 13:01 | disposition home or self-care (01) ==
LOC: DI.N 13:00
DX: Z12.31 Encounter for screening mammogram for malignant neoplasm of breast (principal)

== ENCOUNTER 2022-02-10 07:06 | Outpatient (CLI) | payer MEDICARE, OTHER ==
[2022-02-10 07:24] LABS: BASOPHILS % (AUTO) 0.3 %; EOSINOPHILS # (AUTO) 0.1 10^3/uL (0.0-0.7); EOSINOPHILS % (AUTO) 2.3 %; HCT - HEMATOCRIT 41.3 % (37.0-47.0); HGB - HEMOGLOBIN 13.9 g/dL (12.0-16.0); LYMPHOCYTES # (AUTO) 1.5 10^3/uL (1.5-3.5); LYMPHOCYTES % (AUTO) 23.9 %; MEAN CORPUSCULAR HEMOGLOBIN 31.7 pg (27.0-31.0); MEAN CORPUSCULAR HGB CONC 33.7 g/dL (32.0-36.0); MEAN CORPUSCULAR VOLUME 94.1 fL (81.0-99.0); MEAN PLATELET VOLUME 9.7 fL (7.9-10.8); MONOCYTES # (AUTO) 0.4 10^3/uL (0.0-1.0); MONOCYTES % (AUTO) 6.7 %; NEUTROPHILS # (AUTO) 4.1 10^3/uL (1.5-6.6); NEUTROPHILS % (AUTO) 66.5 %; PLT - PLATELET COUNT 259 10^3/uL (130-450); RED BLOOD COUNT 4.39 10^6/uL (4.20-5.40); RED CELL DISTRIBUTION WIDTH 12.8 % (12.0-15.0); WHITE BLOOD COUNT 6.1 x10^3/uL (4.8-10.8)
[2022-02-10 07:43] LABS: ALBUMIN 4.6 g/dL (3.2-5.5); ALBUMIN/GLOBULIN RATIO 1.5 (1.0-2.2); ALKALINE PHOSPHATASE 67 IU/L (42-121); ALT ALANINE AMINOTRANSFERASE 19 IU/L (10-60); AST ASPARTATE AMINOTRANSFERASE 25 IU/L (10-42); BILIRUBIN,TOTAL 1.2 mg/dL (0.2-1.0); BUN - BLOOD UREA NITROGEN 17 mg/dL (6-20); CALCIUM 9.9 mg/dL (8.5-10.3); CARBON DIOXIDE - CO2 27 mmol/L (21-32); CHLORIDE 105 mmol/L (101-111); CHOL/HDL RATIO 2.5 (<4.4); CHOLESTEROL 236 mg/dL; CREATININE 0.8 mg/dL (0.4-1.0); GFR - MDRD 72 (>89); GLUCOSE 104 mg/dL (70-100); HDL CHOLESTEROL 96 mg/dL; LDL CHOLESTEROL,CALCULATED 126 mg/dL; LDL/HDL RATIO 1.3 (<4.4); POTASSIUM 4.3 mmol/L (3.5-5.0); SODIUM 140 mmol/L (135-145); TOTAL PROTEIN 7.6 g/dL (6.7-8.2); TRIGLYCERIDES 68 mg/dL; VLDL CHOLESTEROL 14 mg/dL
[2022-02-10 07:55] LABS: THYROID STIMULATING HORMONE 2.4 uIU/mL (0.34-5.60)
[2022-02-10 07:57] LABS: FREE T3 2.6 pg/mL (2.5-3.9); FREE T4 (FREE THYROXINE) 0.89 ng/dL (0.58-1.64)
[2022-02-10 13:45] LABS: ESTIMATED AVERAGE GLUCOSE 97 mg/dL (70-100)
== END 2022-02-10 07:07 | disposition home or self-care (01) ==
LOC: LAB 07:06
PROVIDERS: ATTEND Nurse Practitioner Family
DX: Z00.00 Encounter for general adult medical examination without abnormal findings (principal); I10 Essential (primary) hypertension; E55.9 Vitamin D deficiency, unspecified; Z79.899 Other long term (current) drug therapy
CPT/HCPCS: 36415; 80053; 80061; 82306; 83036; 83721; 84439; 84443; 84481; 85025

== ENCOUNTER 2022-05-31 14:28 | Outpatient (CLI) | payer MEDICARE, OTHER ==
--- NOTE | 2022-06-01 10:54 | Mammography Report ---
BILATERAL DIGITAL SCREENING MAMMOGRAM 3D/2D: 05/31/2022 CLINICAL: Routine screening. Comparison is made to exams dated: 04/30/2021 mammogram, 05/21/2020 mammogram, 05/22/2018 mammogram, and 04/26/2017 mammogram - [facility]. There are scattered areas of fibroglandular density in both breasts (category b / 25%-50% glandular t issue). No significant masses, calcifications, or other findings are seen in either breast. There has been no significant interval change. IMPRESSION: NEGATIVE There is no mammographic evidence of malignancy. A 1 year screening mammogram is recommended. Based on the Tyrer Cuzick model (a risk assessment model) the patients lifetime risk is 6.1% and her 10 year risk is 3.0%. According to the ACR, ACS, and NCCN guidelines, an annual breast MRI exam will g with mammogram is recommended if the patients lifetime risk is 20% or greater. This exam was interpreted at Station ID: [id number]. NOTE: For mammograms, a report in lay terms will be sent to the patient. Approximately 15% of breast malignancies will not be visualized mammographically. In the management of a palpable breast mass, a negative mammogram must not discourage biopsy of a clinically suspicious lesion. Electronically Signed By: Aliyah browning/carlita:06/01/2022 10:22:45 ACR BI-RADS Category 1: Negative 3341F PARENCHYMAL PATTERN: (A) - The breast(s) demonstrate(s) scattered fibroglandular densities. BI-RADS CATEGORY: (1) - 1 RECOMMENDATION: (ANNUAL) - Recommend routine annual screening mammography. [id number] 1 year screening LATERALITY: (B)
== END 2022-05-31 14:29 | disposition home or self-care (01) ==
LOC: DI.N 14:28
PROVIDERS: ATTEND Nurse Practitioner Family
DX: Z12.31 Encounter for screening mammogram for malignant neoplasm of breast (principal)

== ENCOUNTER 2023-02-03 13:49 | Outpatient (CLI) | payer MEDICARE, OTHER ==
--- NOTE | 2023-02-03 14:23 | XRAY Report ---
PROCEDURE: Foot 3 View RT INDICATIONS: HEEL PAIN TECHNIQUE: 3 views of the foot were acquired. COMPARISON: None. FINDINGS: Bones: No fractures or dislocations. No suspicious bony lesions. Plantar calcaneal bone spur. Soft tissues: No suspicious soft tissue calcifications or masses. IMPRESSION: Plantar calcaneal bone spur. Reviewed by: Yesy Juarez MD, PhD on 02/03/2023 2:22 PM PDT Approved by: Yesy Juarez MD, PhD on 02/03/2023 2:22 PM PDT Station ID: [id number]
== END 2023-02-03 13:50 | disposition home or self-care (01) ==
LOC: DI 13:49
PROVIDERS: ATTEND Nurse Practitioner Family
DX: M77.31 Calcaneal spur, right foot (principal)

== ENCOUNTER 2023-02-07 07:21 | Outpatient (CLI) | payer MEDICARE, OTHER ==
[2023-02-07 08:02] LABS: ALBUMIN 4.5 g/dL (3.2-5.5); ALBUMIN/GLOBULIN RATIO 1.7 (1.0-2.2); ALKALINE PHOSPHATASE 54 IU/L (42-121); ALT ALANINE AMINOTRANSFERASE 13 IU/L (10-60); AST ASPARTATE AMINOTRANSFERASE 18 IU/L (10-42); BUN - BLOOD UREA NITROGEN 13 mg/dL (6-20); CALCIUM 10.1 mg/dL (8.5-10.3); CARBON DIOXIDE - CO2 30 mmol/L (21-32); CHLORIDE 106 mmol/L (101-111); CHOL/HDL RATIO 2.4 (<4.4); CHOLESTEROL 194 mg/dL; CREATININE 0.9 mg/dL (0.6-1.3); GFR - MDRD 63 (>89); GLUCOSE 111 mg/dL (74-104); HDL CHOLESTEROL 82 mg/dL; LDL CHOLESTEROL,CALCULATED 96 mg/dL; LDL/HDL RATIO 1.2 (<4.4); POTASSIUM 4.2 mmol/L (3.5-4.5); SODIUM 140 mmol/L (135-145); TOTAL PROTEIN 7.1 g/dL (6.4-8.9); TRIGLYCERIDES 82 mg/dL (48-352); VLDL CHOLESTEROL 16 mg/dL
[2023-02-07 08:04] LABS: BASOPHILS % (AUTO) 0.2 %; EOSINOPHILS # (AUTO) 0.2 10^3/uL (0.0-0.7); EOSINOPHILS % (AUTO) 3.7 %; HCT - HEMATOCRIT 40.9 % (37.0-47.0); HGB - HEMOGLOBIN 13.5 g/dL (12.0-16.0); LYMPHOCYTES % (AUTO) 19.4 %; MEAN CORPUSCULAR HEMOGLOBIN 31.3 pg (27.0-31.0); MEAN CORPUSCULAR VOLUME 94.9 fL (81.0-99.0); MEAN PLATELET VOLUME 10.5 fL (7.9-10.8); MONOCYTES # (AUTO) 0.3 10^3/uL (0.0-1.0); MONOCYTES % (AUTO) 6.5 %; NEUTROPHILS # (AUTO) 3.6 10^3/uL (1.5-6.6); NEUTROPHILS % (AUTO) 69.8 %; PLT - PLATELET COUNT 234 10^3/uL (130-450); RED BLOOD COUNT 4.31 10^6/uL (4.20-5.40); RED CELL DISTRIBUTION WIDTH 12.3 % (12.0-15.0); WHITE BLOOD COUNT 5.1 x10^3/uL (4.8-10.8)
[2023-02-07 12:17] LABS: ESTIMATED AVERAGE GLUCOSE 103 mg/dL (70-100); HEMOGLOBIN A1c% 5.2 % (4.27-6.07)
== END 2023-02-07 07:22 | disposition home or self-care (01) ==
LOC: LAB 07:21
PROVIDERS: ATTEND Nurse Practitioner Family
DX: I10 Essential (primary) hypertension (principal); Z13.220 Encounter for screening for lipoid disorders; E55.9 Vitamin D deficiency, unspecified; Z13.1 Encounter for screening for diabetes mellitus; Z79.899 Other long term (current) drug therapy
CPT/HCPCS: 36415; 80053; 80061; 82306; 83036; 83721; 84443; 85025

== ENCOUNTER 2023-02-12 09:51 | Outpatient (CLI) | payer MEDICARE, OTHER ==
--- NOTE | 2023-02-12 19:09 | Ultrasound Report ---
PROCEDURE: Head or Neck Soft Tissue INDICATIONS: THYROID NODULE TECHNIQUE: Real-time scanning was performed of the thyroid gland, with image documentation. COMPARISON: 06/17/2019, 06/16/2018, 05/04/2018, 05/14/2016, 05/22/2015 FINDINGS: Right: Thyroid lobe measures 3.9 x 1.6 x 1.7 cm, and is homogeneous in echotexture. Left: Thyroid lobe measures 5.1 x 1.6 x 1.5 cm, and is homogenous in echotexture. Isthmus: 5 mm thick. Nodule number: 1 Location: Right lateral superior Size: 1 x 1.3 x 0.8 cm, prior 1 x 0.7 x 0.8 cm. Composition: Solid. Echogenicity: Hypoechoic. Shape: wider than tall. Margins: Smooth (0 points). Echogenic foci: None (0 points). Total points: 4 ACR TI-RADS category: 4. Nodule number: 2 Location: Right lateral mid Size: 0.5-0 0.6 x 0.4 cm, prior 0.6 x 0.5 and 0.5 cm. Composition: Predominantly solid. Echogenicity: Hypoechoic. Shape: wider than tall. Margins: Smooth (0 points). Echogenic foci: Punctate. Total points: 7 ACR TI-RADS category: 5. Nodule number: 3 Location: Right lateral inferior Size: 0.5 x 0.6 x 0.6 cm, prior 0.5 x 0.5 x 0.4 cm. Composition: Predominantly solid. Echogenicity: Hyperechoic. Shape: wider than tall. Margins: Smooth (0 points). Echogenic foci: None (0 points). Total points: 3 ACR TI-RADS category: 3. Nodule number: 4 Location: Left lateral mid Size: 0.9 x 1.1 x 0.7 cm, prior 1.1 x 0.6 x 0.8 cm. Composition: Predominantly solid. Echogenicity: Hypoechoic. Shape: wider than tall. Margins: Smooth. Echogenic foci: Punctate. Total points: 7 ACR TI-RADS category: 5. Nodule number: 5 Location: Left medial mid Size: 0.5 x 0.6 x 0.3 cm, Prior 0.5 x 0.2 x 0.4 centimeters. Composition: Solid. Echogenicity: Hypoechoic. Shape: wider than tall. Margins: Smooth (0 points). Echogenic foci: None (0 points). Total points: 4 ACR TI-RADS category: 4. IMPRESSION: By published criteria, ultrasound-guided biopsy would be recommended for the left latera l mid thyroid nodule, #4 above. However, there has been a prior bilateral thyroid biopsy. Please correlate with biopsy resu lts. ACR TI-RADS definitions and recommendations: TI-RADS 1 (benign): 0 points. FNA not needed. TI-RADS 2 (not suspicious): 2 points. FNA not needed. TI-RADS 3 (mildly suspicious): 3 points. "FNA if 2.5 cm or larger, follow up if 1.5 cm or larger (at 1, 3, and 5 years). TI-RADS 4 (moderately suspicious): 4-6 points. "FNA if 1.5 cm or larger, follow up if 1 cm or larger (at 1, 2, 3, and 5 years). TI-RADS 5 (highly suspicious): 7 points or more. "FNA if 1 cm or larger, follow up if 0.5 cm or larger (every year for 5 years). Reviewed by: Vishal Romero MD on 02/12/2023 6:07 PM GIGI Approved by: Vishal Romero MD on 02/12/2023 6:07 PM GIGI Station ID: [id number]
== END 2023-02-12 09:52 | disposition home or self-care (01) ==
LOC: DI 09:51
PROVIDERS: ATTEND Nurse Practitioner Family
DX: E04.2 Nontoxic multinodular goiter (principal)

== ENCOUNTER 2023-04-20 15:00 | Outpatient (CLI) | payer MEDICARE, OTHER ==
--- NOTE | 2023-04-20 17:35 | DEXA Report ---
PROCEDURE: Dexa Spine and/or Hip INDICATIONS: POST MENOPAUSAL TECHNIQUE: Dual energy x-ray absorptiometry (DXA) was performed on a [employer] System. Regions measur ed are the AP Spine, femoral neck, and if needed forearm. COMPARISON: 03/11/2021 FINDINGS: Lumbar Spine: Bone Mineral Density 1.178 g/cm/cm,T score 0.0. Normal Left Femoral Neck: Bone Mineral Density 0.885 g/cm/cm, T score -1.1. Left Hip: Bone Mineral Density 0.888 g/cm/cm,T score -1.0. Osteopenia (T score greater or equal to -1.0: NORMAL) (T score from -1.1 to -2.4: OSTEOPENIA) (T score less than or equal to -2.5 to: OSTEOPOROSIS) Impression: By WHO criteria, this patient has low bone density (osteopenia). No statistical interval change in bone minteral density of the lumbar spine. No statistical interval change in bone minteral density of the hip. Patients with diagnosis of osteoporosis or osteopenia should have regular bone mineral density assess ment. For those eligible for Medicare, routine testing is allowed once every 2 years. Testing frequ ency can be increased for patients who have rapidly progressing disease or for those who are receivin g medical therapy to restore bone mass. Reviewed by: Mando Evans MD on 04/20/2023 5:33 PM PST Approved by: Mando Evans MD on 04/20/2023 5:33 PM PST Station ID: [id number]
== END 2023-04-20 15:01 | disposition home or self-care (01) ==
LOC: DI 15:00
PROVIDERS: ATTEND Nurse Practitioner Family
DX: Z78.0 Asymptomatic menopausal state (principal); M85.88 Other specified disorders of bone density and structure, other site

== ENCOUNTER 2023-06-07 14:40 | Outpatient (CLI) | payer MEDICARE, OTHER ==
--- NOTE | 2023-06-08 12:57 | Mammography Report ---
BILATERAL DIGITAL SCREENING MAMMOGRAM 3D/2D: 06/07/2023 CLINICAL: Routine screening. Comparison is made to exams dated: 05/31/2022 mammogram, 04/30/2021 mammogram, 05/21/2020 mammogram, mammogram, 04/26/2017 mammogram, and 05/12/2016 mammogram - [facility]. There are scattered areas of fibroglandular density in both breasts (category b / 25%-50% glandular t issue). No significant masses, calcifications, or other findings are seen in either breast. There has been no significant interval change. IMPRESSION: NEGATIVE There is no mammographic evidence of malignancy. A 1 year screening mammogram is recommended. Based on the Tyrer Cuzick model (a risk assessment model) the patients lifetime risk is 5.8% and her 10 year risk is 3.0%. According to the ACR, ACS, and NCCN guidelines, an annual breast MRI exam along with mammogram is recommended if the patients lifetime risk is 20% or greater. This exam was interpreted at Station ID: [id number]. NOTE: For mammograms, a report in lay terms will be sent to the patient. Approximately 15% of breast malignancies will not be visualized mammographically. In the management of a palpable breast mass, a negative mammogram must not discourage biopsy of a clinically suspicious lesion. Electronically Signed By: Kai Childress M.D. [email or web address]:06/07/2023 16:40:27 ACR BI-RADS Category 1: Negative 3341F PARENCHYMAL PATTERN: (A) - The breast(s) demonstrate(s) scattered fibroglandular densities. BI-RADS CATEGORY: (1) - 1 Mammogram [id number] 1 year screening LATERALITY: (B)
== END 2023-06-07 14:41 | disposition home or self-care (01) ==
LOC: DI.N 14:40
DX: Z12.31 Encounter for screening mammogram for malignant neoplasm of breast (principal); R92.323 Mammographic fibroglandular density, bilateral breasts